=== PATIENT | male | born 1965 | race Caucasian/White ===

== ENCOUNTER → 2017-07-06 | Outpatient (CLI) | payer OTHER ==
--- NOTE | 2017-07-06 14:28 | Diagnostic Imaging Report ---
EXAMINATION: Scrotal ultrasound CLINICAL INDICATION: Right testicular pain. COMPARISON: . TECHNIQUE: Grayscale and color Doppler evaluation of the scrotum was performed in transverse and longitudinal planes. FINDINGS: The right testicle measures 4.2 x 2.4 x 3.1 cm. There are no masses or calcifications.. The right epididymis measures 0.9 x 1.3 x 1.5 cm. No nodules or masses.. There is no evidence of right hydrocele. A right varicocele is identified. There is normal arterial and venous flow to the right testicle, without evidence of torsion. The left testicle measures 3.7 x 2.1 x 2.8 cm. There are no masses or calcifications.. The left epididymis measures 0.9 x 1.3 x 0.7 cm. No nodules or masses.. There is a small left hydrocele. A left varicocele is identified. There is normal arterial and venous flow to the left testicle without evidence of torsion. The scrotum has a normal appearance, without focal lesions. Overlying skin is unremarkable. No sonographic evidence of inguinal hernia. Impression: 1. Normal bilateral testicular size and echogenicity. No focal lesions. Normal bilateral flow, with low likelihood of torsion. 2. Bilateral varicoceles. 3. Small left hydrocele. Signed by: Dr. Dwain Duncan M.D. on 07/06/2017 2:25 PM
== END ==
LOC: US 13:05
PROVIDERS: ATTEND Family Medicine
DX: N50.9 Disorder of male genital organs, unspecified (principal); I86.1 Scrotal varices; N43.3 Hydrocele, unspecified
CPT/HCPCS: 76870; 93976

== ENCOUNTER → 2022-01-23 | Day surgery (SDC) | payer OTHER ==
[~2022-01-23] MED LIST: ALLERGY; ATENOLOL50 MG PO; GLUCAGON FOR INJ 1 MG VIAL IV ONE; HYOSCYAMINE SULFATE 0.5 MG/ML INJ IV ONE; MIDAZOLAM HCL 2 MG/2 ML VIAL ONE; OLMESARTAN PO; PROPOFOL IV EMULSION 10 MG/ML 20 ML VIAL IV ONE
[2022-01-23 09:00] VITALS: BP 124/72
== END | disposition home or self-care (01) ==
LOC: OR 07:17
PROVIDERS: ATTEND Internal Medicine Gastroenterology
DX: Z12.11 Encounter for screening for malignant neoplasm of colon (principal); D12.4 Benign neoplasm of descending colon; D12.5 Benign neoplasm of sigmoid colon; K57.30 Diverticulosis of large intestine without perforation or abscess without bleeding; K64.8 Other hemorrhoids; Z71.3 Dietary counseling and surveillance; I10 Essential (primary) hypertension; I45.10 Unspecified right bundle-branch block; M47.812 Spondylosis without myelopathy or radiculopathy, cervical region; R09.82 Postnasal drip; F17.210 Nicotine dependence, cigarettes, uncomplicated; Z88.0 Allergy status to penicillin; Z01.810 Encounter for preprocedural cardiovascular examination; Z01.812 Encounter for preprocedural laboratory examination; Z20.822 Contact with and (suspected) exposure to COVID-19; Z79.899 Other long term (current) drug therapy; Z68.33 Body mass index [BMI] 33.0-33.9, adult
CPT/HCPCS: 0223U; 36415; 45385; 93005; J1610; J1980; J2250; J2704; 45378; 45380

== ENCOUNTER → 2022-12-18 | Outpatient (CLI) | payer OTHER ==
[~2022-12-18] MED LIST changes: -GLUCAGON FOR INJ 1 MG VIAL IV ONE; -HYOSCYAMINE SULFATE 0.5 MG/ML INJ IV ONE; -MIDAZOLAM HCL 2 MG/2 ML VIAL ONE; -PROPOFOL IV EMULSION 10 MG/ML 20 ML VIAL IV ONE
== END | disposition home or self-care (01) ==
LOC: RAD 09:18
PROVIDERS: ATTEND Family Medicine
DX: I10 Essential (primary) hypertension (principal)
CPT/HCPCS: 93306

== ENCOUNTER 2023-03-25 14:00 | Outpatient (RCR) | payer OTHER | END 2023-04-20 | LOC: PT 14:00 | PROVIDERS: ATTEND Neurological Surgery | DX: M54.50 Low back pain, unspecified (principal) ==